=== PATIENT | female | born 1960 | race Caucasian/White ===

== ENCOUNTER 2022-11-14 19:21 | Inpatient (IN) ==
[2022-11-14] MEDS ORDERED: Lactated Ringers 1000 ml BAG 1,000 ML IV ONE ×2 (19:39→20:00)
[2022-11-14] MEDS ORDERED: Ondansetron 4 mg VIAL 2 MG/ML 2 ml VIAL IV ONE (19:39)
[2022-11-14 20:01] LABS: ABS Lymphocytes 0.5 10^3/uL (1.0-4.8); ABS Monocytes 0.3 10^3/uL (0.0-0.9); ABS Neutrophils 11.1 10^3/uL (1.5-7.6); Eosinophil % 0.1 %; Hematocrit 33.7 % (35-45); Hemoglobin 11.5 g/dL (11.5-14.3); Mean Corpuscular Hemoglobin 31.4 pg (27-33); Mean Corpuscular Volume 92.2 fL (80-97); Mean Platelet Volume 9.7 fL (7.5-11.2); Platelet Count 301 10^3/uL (150-450); Red Blood Count 3.65 10^6/uL (3.63-4.92); White Blood Count 11.9 10^3/uL (3.8-11.8)
[2022-11-14 20:11] LABS: Venous Bicarbonate HCO3 16.1 mmol/L (24-28)
[2022-11-14 20:13] LABS: Albumin 3.8 g/dL (3.2-5.2); Albumin/Globulin Ratio 1.7 (1-3); C Reactive Protein 1.77 mg/L (<8.01); Calcium 8.2 mg/dL (8.6-10.3); Creatinine, Serum 1.31 mg/dL (0.51-0.95); Globulin 2.2 g/dL (2-4); Potassium 5.4 mmol/L (3.5-5.0); Total Bilirubin 0.5 mg/dL (0.2-1.0); eGFR CKD-EPI 46.1 (>60)
[2022-11-14] MEDS ORDERED: NORMOSOL-R pH 7.4 1000 mL BAG 1,000 ML IV ONE (20:24)
[2022-11-14] MEDS ORDERED: Dextrose 50% Syringe 50 ml 25 GM/50 ML SYRINGE IV PUSH PRN (20:24)
[2022-11-14] MEDS ORDERED: Ondansetron 4 mg VIAL 2 MG/ML 2 ml VIAL IV PRN (20:51)
[2022-11-14] MEDS ORDERED: Pantoprazole VIAL 40 MG VIAL IV ONE (20:55)
[2022-11-14] MEDS ORDERED: Al Hydrox/Mg Hydrox/Simet LIQ 30 ML UDC PO ONE (20:55)
[2022-11-14 20:56] LABS: High Sensitivity Troponin 1 Hr 11 pg/mL (<15)
[2022-11-14] MEDS ORDERED: Insulin Infusion 100unit/100mL 100 UNIT/100 ML BAG IV SCH (21:00)
[2022-11-14] MEDS: Enoxaparin 40 MG/0.4 ML SYR SUBCUT SCH (21:02)
[2022-11-14 21:15] LABS: Glucose Confirmatory 485 mg/dL (70-100)
[2022-11-14] MEDS ORDERED: NORMOSOL-R pH 7.4 1000 mL BAG 1,000 ML IV SCH (22:00)
[2022-11-15] MEDS ORDERED: NORMOSOL-R pH 7.4 1000 mL BAG 1,000 ML IV SCH (01:00)
[2022-11-15 01:06] LABS: Calcium 7.4 mg/dL (8.6-10.3); Creatinine, Serum 1.2 mg/dL (0.51-0.95); Magnesium 1.4 mg/dL (1.9-2.7); Phosphorus 2.1 mg/dL (2.5-5.0); Potassium 3.7 mmol/L (3.5-5.0); eGFR CKD-EPI 51.2 (>60)
[2022-11-15] MEDS ORDERED: Magnesium Sulfate 2 gm BAG 2 GM/50 ML BAG IVPB ONE (01:19)
[2022-11-15] MEDS ORDERED: Potassium Phosphate IV 15 MMOL in NS 0.9% 250 ml 250 ML IVPB ONE (01:45)
[2022-11-15] MEDS ORDERED: D5W NS 0.9% 40Meq KCL 1000 ml 1,000 ML IV SCH (02:00)
[2022-11-15] MEDS ORDERED: NS 0.9% w/ 40 Meq KCL 1000 ML 1,000 ML IV SCH (02:00)
[2022-11-15] MEDS ORDERED: Insulin GLARGINE 100 un/ml 10 ml VIAL SUBCUT ONE (02:28)
[2022-11-15] MEDS ORDERED: NS 0.9% 1000 ml BAG 1,000 ML IV SCH (02:30)
[2022-11-15 04:21] LABS: ABS Lymphocytes 0.8 10^3/uL (1.0-4.8); ABS Monocytes 0.8 10^3/uL (0.0-0.9); ABS Neutrophils 8.4 10^3/uL (1.5-7.6); ABS Nucleated RBC 0.01 10^3/ul; Eosinophil % 0.1 %; Hematocrit 28.1 % (35-45); Hemoglobin 9.8 g/dL (11.5-14.3); Mean Corpuscular Hemoglobin 31.4 pg (27-33); Mean Corpuscular Hgb Conc 34.8 g/dL (31-36); Mean Corpuscular Volume 90.2 fL (80-97); Mean Platelet Volume 8.2 fL (7.5-11.2); Nucleated Red Blood Cells % 0.1 /100 WBC (0.0-0.4); Platelet Count 249 10^3/uL (150-450); Red Blood Count 3.11 10^6/uL (3.63-4.92)
[2022-11-15 04:23] LABS: Urine Appearance Clear; Urine Bilirubin Negative (Negative); Urine Blood Negative (Negative); Urine Color Yellow; Urine Glucose Negative (Negative); Urine Ketones Negative (Negative); Urine Nitrite Negative (Negative); Urine Protein Negative (Negative); Urine Urobilinogen Negative (Negative)
[2022-11-15 04:25] LABS: Urine Amorphous Crystals Present (Absent); Urine Bacteria Absent (Absent); Urine Red Blood Cell Absent (Absent); Urine Squamous Epithelial Cell Present (Absent); Urine White Blood Cell 1+(6-10/hpf) (Absent)
[2022-11-15 04:36] LABS: Calcium 7.6 mg/dL (8.6-10.3); Creatinine, Serum 1.07 mg/dL (0.51-0.95); Magnesium 2.4 mg/dL (1.9-2.7); Phosphorus 2.5 mg/dL (2.5-5.0); eGFR CKD-EPI 58.7 (>60)
[2022-11-15] MEDS: Cholecalciferol (VIT D3) 1,000 unit TAB PO SCH (08:04)
[2022-11-15] MEDS: Aspirin EC 81 mg TAB.EC (enteric coated) PO SCH (08:04)
[2022-11-15] MEDS: ICOSAPENT ETHYL 1 GM CAPSULE (NF) PO SCH (08:18)
[2022-11-15] MEDS ORDERED: Pantoprazole VIAL 40 MG VIAL IV SCH (09:00)
[2022-11-15] MEDS ORDERED: Dextrose 50% Syringe 50 ml 25 GM/50 ML SYRINGE IV PUSH PRN (09:14)
[2022-11-15 10:59] LABS: Calcium 7.3 mg/dL (8.6-10.3); Creatinine, Serum 1.03 mg/dL (0.51-0.95); Magnesium 2.2 mg/dL (1.9-2.7); Potassium 4.8 mmol/L (3.5-5.0); eGFR CKD-EPI 61.5 (>60)
[2022-11-15] MEDS: Multivitamins/Minerals TAB PO SCH (11:27)
[2022-11-15 11:54] LABS: Calcium 7.4 mg/dL (8.6-10.3); Creatinine, Serum 1.01 mg/dL (0.51-0.95); Magnesium 2.2 mg/dL (1.9-2.7); Phosphorus 3.8 mg/dL (2.5-5.0); Potassium 4.9 mmol/L (3.5-5.0); eGFR CKD-EPI 62.9 (>60)
[2022-11-15 12:45] LABS: Osmolality Serum 261 mOsm/kg (275-295)
[2022-11-15 17:12] LABS: Urine Potassium Concentration 26.4 mmol/L
[2022-11-15 17:21] LABS: Calcium 8.1 mg/dL (8.6-10.3); Creatinine, Serum 1.05 mg/dL (0.51-0.95); Magnesium 2.1 mg/dL (1.9-2.7); Phosphorus 3.2 mg/dL (2.5-5.0); Potassium 4.6 mmol/L (3.5-5.0); eGFR CKD-EPI 60.1 (>60)
[2022-11-15] MEDS ORDERED: Insulin LISPRO FOR INSULIN PUMP SUBCUT SCH (19:00)
[2022-11-15 19:41] LABS: Urine Osmo 411 mOsm/kg (150-1150)
[2022-11-15] MEDS: Enoxaparin 40 MG/0.4 ML SYR SUBCUT SCH (20:28)
[2022-11-15] MEDS ORDERED: Insulin GLARGINE 100 un/ml 10 ml VIAL SUBCUT SCH (21:00)
[2022-11-16 06:16] LABS: ABS Basophils 0.1 10^3/uL (0.0-0.1); ABS Eosinophils 0.1 10^3/uL (0.0-0.5); ABS Lymphocytes 1.7 10^3/uL (1.0-4.8); ABS Monocytes 0.4 10^3/uL (0.0-0.9); ABS Neutrophils 2.7 10^3/uL (1.5-7.6); ABS Nucleated RBC 0.01 10^3/ul; Eosinophil % 1.5 %; Hematocrit 26.5 % (35-45); Hemoglobin 9.4 g/dL (11.5-14.3); Lymphocyte % 33.8 %; Mean Corpuscular Hgb Conc 35.5 g/dL (31-36); Mean Corpuscular Volume 90.1 fL (80-97); Mean Platelet Volume 8.6 fL (7.5-11.2); Nucleated Red Blood Cells % 0.2 /100 WBC (0.0-0.4); Platelet Count 218 10^3/uL (150-450); Red Blood Count 2.94 10^6/uL (3.63-4.92); White Blood Count 4.9 10^3/uL (3.8-11.8)
[2022-11-16 06:37] LABS: Calcium 7.5 mg/dL (8.6-10.3); Creatinine, Serum 0.88 mg/dL (0.51-0.95); Phosphorus 3.2 mg/dL (2.5-5.0); Potassium 4.5 mmol/L (3.5-5.0); eGFR CKD-EPI 74.3 (>60)
[2022-11-16] MEDS: Cholecalciferol (VIT D3) 1,000 unit TAB PO SCH (11:36)
[2022-11-16] MEDS: Multivitamins/Minerals TAB PO SCH (11:36)
[2022-11-16] MEDS: Aspirin EC 81 mg TAB.EC (enteric coated) PO SCH (11:36)
[2022-11-16] MEDS: ICOSAPENT ETHYL 1 GM CAPSULE (NF) PO SCH (11:37)
[2022-11-16 16:17] LABS: Creatinine, Serum 0.85 mg/dL (0.51-0.95); Potassium 4.6 mmol/L (3.5-5.0); eGFR CKD-EPI 77.4 (>60)
[2022-11-16] MEDS: Enoxaparin 40 MG/0.4 ML SYR SUBCUT SCH ×2 (20:44→20:47)
[2022-11-16 21:52] LABS: Calcium 8.4 mg/dL (8.6-10.3); Creatinine, Serum 0.83 mg/dL (0.51-0.95); Potassium 4.6 mmol/L (3.5-5.0); eGFR CKD-EPI 79.7 (>60)
[2022-11-17 06:02] LABS: ABS Basophils 0.1 10^3/uL (0.0-0.1); ABS Eosinophils 0.1 10^3/uL (0.0-0.5); ABS Lymphocytes 1.4 10^3/uL (1.0-4.8); ABS Monocytes 0.4 10^3/uL (0.0-0.9); ABS Neutrophils 2.1 10^3/uL (1.5-7.6); ABS Nucleated RBC 0.01 10^3/ul; Eosinophil % 3.6 %; Hematocrit 26.5 % (35-45); Hemoglobin 9.3 g/dL (11.5-14.3); Lymphocyte % 34.4 %; Mean Corpuscular Hgb Conc 35.2 g/dL (31-36); Mean Corpuscular Volume 90.7 fL (80-97); Mean Platelet Volume 8.2 fL (7.5-11.2); Nucleated Red Blood Cells % 0.2 /100 WBC (0.0-0.4); Platelet Count 223 10^3/uL (150-450); Red Blood Count 2.92 10^6/uL (3.63-4.92)
[2022-11-17 06:24] LABS: Calcium 7.6 mg/dL (8.6-10.3); Creatinine, Serum 0.81 mg/dL (0.51-0.95); Potassium 4.3 mmol/L (3.5-5.0)
[2022-11-17] MEDS: Cholecalciferol (VIT D3) 1,000 unit TAB PO SCH (07:48)
[2022-11-17] MEDS: Aspirin EC 81 mg TAB.EC (enteric coated) PO SCH (07:48)
[2022-11-17] MEDS: Multivitamins/Minerals TAB PO SCH (07:48)
[2022-11-17] MEDS: ICOSAPENT ETHYL 1 GM CAPSULE (NF) PO SCH (07:49)
[2022-11-17] MEDS ORDERED: Magnesium Hydroxide LIQ 30 ML UDC PO PRN (09:44)
[2022-11-17] MEDS ORDERED: Senna TAB 8.6 mg TAB PO PRN (09:45)
[2022-11-17 14:34] LABS: Calcium 8.2 mg/dL (8.6-10.3); Creatinine, Serum 0.86 mg/dL (0.51-0.95); Potassium 4.5 mmol/L (3.5-5.0); eGFR CKD-EPI 76.3 (>60)
[2022-11-17] MEDS: Enoxaparin 40 MG/0.4 ML SYR SUBCUT SCH (20:18)
[2022-11-18 05:51] LABS: ABS Basophils 0.1 10^3/uL (0.0-0.1); ABS Eosinophils 0.1 10^3/uL (0.0-0.5); ABS Lymphocytes 1.5 10^3/uL (1.0-4.8); ABS Monocytes 0.3 10^3/uL (0.0-0.9); ABS Neutrophils 2.2 10^3/uL (1.5-7.6); ABS Nucleated RBC 0.01 10^3/ul; Eosinophil % 3.2 %; Hematocrit 27.8 % (35-45); Hemoglobin 9.7 g/dL (11.5-14.3); Lymphocyte % 34.8 %; Mean Corpuscular Hemoglobin 31.6 pg (27-33); Mean Corpuscular Hgb Conc 34.8 g/dL (31-36); Mean Corpuscular Volume 90.7 fL (80-97); Mean Platelet Volume 8.3 fL (7.5-11.2); Nucleated Red Blood Cells % 0.3 /100 WBC (0.0-0.4); Platelet Count 227 10^3/uL (150-450); Red Blood Count 3.07 10^6/uL (3.63-4.92); Red Cell Distribution Width 13.1 % (12-17); White Blood Count 4.3 10^3/uL (3.8-11.8)
[2022-11-18 06:17] LABS: Calcium 8.1 mg/dL (8.6-10.3); Creatinine, Serum 0.68 mg/dL (0.51-0.95); Potassium 4.3 mmol/L (3.5-5.0); eGFR CKD-EPI 98.4 (>60)
[2022-11-18] MEDS: ICOSAPENT ETHYL 1 GM CAPSULE (NF) PO SCH (09:12)
[2022-11-18] MEDS: Cholecalciferol (VIT D3) 1,000 unit TAB PO SCH (09:15)
[2022-11-18] MEDS: Multivitamins/Minerals TAB PO SCH (09:15)
[2022-11-18] MEDS: Aspirin EC 81 mg TAB.EC (enteric coated) PO SCH (09:15)
[2022-11-18 12:27] LABS: Calcium 8.3 mg/dL (8.6-10.3); Creatinine, Serum 0.77 mg/dL (0.51-0.95); Potassium 4.5 mmol/L (3.5-5.0); eGFR CKD-EPI 87.2 (>60)
[2022-11-18 13:53] VITALS: BP 116/64
== END 2022-11-18 15:01 | disposition home or self-care (01) | DRG 638 ==
LOC: ED 19:21 → SUATTDRO 20:51 → EDHOLD 20:51 → ICU 21:53 → MED 11-16 01:23
PROVIDERS: ADMIT Student in an Organized Health Care Education/Training Program; ATTEND Hospitalist